=== PATIENT | female | born 1995 | race Two or more races ===

== ENCOUNTER 2017-07-16 05:53 | Outpatient (CLI) | payer OTHER ==
[2017-07-16] MEDS ORDERED: PRENATAL TABLE1 EAC1 PO (16:39)
== END 2017-07-16 09:35 | disposition home or self-care (01) ==
LOC: OBS/DEL 05:53
DX: O47.1 False labor at or after 37 completed weeks of gestation (principal); Z34.03 Encounter for supervision of normal first pregnancy, third trimester

== ENCOUNTER 2017-07-16 15:40 | Inpatient (IN) | payer OTHER ==
[~2017-07-16] VITALS: Ht 160 cm; Wt 67.6 kg
[2017-07-16] MEDS ORDERED: PRENATAL TABLE1 EAC1 PO (16:39)
== END 2017-07-18 12:46 | DRG 775 ==
LOC: OB/GYN 15:40 → LDR 15:40 → OB/GYN 23:33
PROC: 10E0XZZ Delivery of Products of Conception, External Approach (ICD-10-PCS; principal; 2017-07-16)
PROC: 4A1HXCZ Monitoring of Products of Conception, Cardiac Rate, External Approach (ICD-10-PCS; 2017-07-16)
PROC: 4A033R1 Measurement of Arterial Saturation, Peripheral, Percutaneous Approach (ICD-10-PCS; 2017-07-16)
DX: O80 Encounter for full-term uncomplicated delivery (principal); Z3A.39 39 weeks gestation of pregnancy; Z37.0 Single live birth

== ENCOUNTER 2024-10-08 05:26 | Inpatient (IN) | payer OTHER ==
[2024-10-08] VITALS (13 sets, daily range): BP systolic 99–129; BP diastolic 60–79
[~2024-10-08] VITALS: Ht 160 cm; Wt 78.0 kg
[~2024-10-08 05:26] MED LIST: PRENATAL TABLE1 EAC1 PO
[2024-10-08] MEDS ORDERED: AMPICILLIN SODIUM 2,000 MG VIAL IV ONE (05:30)
[2024-10-08] MEDS ORDERED: RINGERS SOLUTION,LACTATED 1,000 ML IV SCH (05:30)
[2024-10-08] MEDS ORDERED: SYNTHROID75 MCG PO (06:22)
[2024-10-08] MEDS ORDERED: PRENATAL CAPLE1 EAC1 PO (06:22)
[2024-10-08 06:58] LABS: HEMATOCRIT 38.1 % (36.0-45.00); HEMOGLOBIN 12.6 g/dL (12.0-15.00); MEAN CELL VOLUME 84.9 fL (80.00-100.00); RED BLOOD COUNT 4.49 M/uL (4.00-6.00); RED CELL DISTRIBUTION WIDTH 17.9 % (11.5-14.5)
[2024-10-08 07:03] LABS: PH,URINE 6.5 (5.0-8.0); URINE APPEARANCE Clear; URINE BILIRRUBIN Negative (NEGATIVE); URINE BLOOD Negative; URINE COLOR Yellow; URINE GLUCOSE Negative (NEGATIVE); URINE KETONE Negative (NEGATIVE); URINE LEUKOCYTE Negative; URINE NITRATE Negative; URINE PROTEIN Negative (NEGATIVE); URINE UROBILINOGEN 0.2 E.U./dl
[2024-10-08 07:05] LABS: URINE BACTERIA 13.4 uL (0.0-1933); URINE EPITHELIAL CELLS 3.1 uL (0.0-38.8)
[2024-10-08 07:06] LABS: INR 0.96; PARTIAL THROMBOPLASTIN TIME 24.9 SECONDS (22.0-34.0); PROTHROMBIN TIME 10.5 SECONDS (9.0-11.5)
[2024-10-08 07:13] LABS: PLATELET COUNT 79 K/uL (150-450)
[2024-10-08 07:33] LABS: URINE RBC 0.7 uL (0.0-20.8)
[2024-10-08] MEDS ORDERED: AMPICILLIN SODIUM 1,000 MG VIAL IV SCH (09:00)
[2024-10-08] MEDS ORDERED: OXYTOCIN 20 UNITS/500ML RL PIGGYBAG IV ONE (11:37)
[2024-10-08] MEDS ORDERED: OXYTOCIN 20 UNITS/500ML RL PIGGYBAG IV SCH (12:00)
[2024-10-08] MEDS ORDERED: MORPHINE SULFATE 4 MG/ML CARTRIDGE IV ONE (16:30)
[2024-10-08] MEDS ORDERED: ERYTHROMYCIN BASE OPHT 1GM EACH TUBE OP ONE ×2 (16:48→20:00)
[2024-10-08] MEDS ORDERED: CHLORHEXIDINE GLUCONATE 120 ML BOTTLE TOP ONE ×2 (16:49→19:45)
[2024-10-08] MEDS ORDERED: LIDOCAINE HCL 1% 10ML VIAL ONE (16:49)
[2024-10-08] MEDS ORDERED: OXYTOCIN 20 UNITS/1000ML RL PIGGYBAG IV ONE (16:49)
[2024-10-08] MEDS ORDERED: METHYLERGONOVINE MALEATE 0.2 MG/ML AMPUL ONE (19:19)
[2024-10-08] MEDS ORDERED: OXYTOCIN 1,000 ML IV SCH (19:45)
[2024-10-08] MEDS ORDERED: ACETAMINOPHEN 500 MG GEL..CAP PO PRN (19:45)
[2024-10-08] MEDS ORDERED: METHYLERGONOVINE MALEATE 0.2 MG/ML AMPUL IM ONE (20:15)
[2024-10-09 00:11] VITALS: BP 109/73
[2024-10-09 02:12] LABS: HEMATOCRIT 39.8 % (36.0-45.00); HEMOGLOBIN 12.8 g/dL (12.0-15.00); MEAN CELL VOLUME 84.8 fL (80.00-100.00); MEAN CORPUSCULAR HEMOGLOBIN 27.3 pg (27.00-32.0); MEAN CORPUSCULAR HGB CONC 32.2 g/dl (32.0-36.0)
[2024-10-09 02:18] LABS: PLATELET COUNT 91 K/uL (150-450)
[2024-10-09 08:09] VITALS: BP 96/59
[2024-10-09] MEDS ORDERED: PNV,CALCIUM 72/IRON/FOLIC ACID 1 TAB TABLET PO SCH (09:00)
[2024-10-09] MEDS ORDERED: FF) RHO(D) IMMUNE GLOBULIN (POM) IM NR (11:15)
[2024-10-09 16:47] VITALS: BP 98/61
[2024-10-10] VITALS: BP 90/63
[2024-10-10 08:34] VITALS: BP 98/54
== END 2024-10-10 13:29 | disposition home or self-care (01) | DRG 807 ==
LOC: LDR 05:26 → OB/GYN 05:26
PROVIDERS: ADMIT Obstetrics & Gynecology; ATTEND Obstetrics & Gynecology
PROC: 10E0XZZ Delivery of Products of Conception, External Approach (ICD-10-PCS; principal; 2024-10-08)
PROC: 4A1HXCZ Monitoring of Products of Conception, Cardiac Rate, External Approach (ICD-10-PCS; 2024-10-08)
DX: O80 Encounter for full-term uncomplicated delivery (principal); Z37.0 Single live birth; Z3A.39 39 weeks gestation of pregnancy